=== PATIENT | male | born 1995 | race Caucasian/White ===

== ENCOUNTER 2016-11-24 01:22 | Emergency (ER) | payer OTHER ==
[2016-11-24 01:30] VITALS: RESP 16; O2SAT 97
[2016-11-24] MEDS ORDERED: SKIN ADHESIVE (DERMABOND) 1 EACH TP ONE (02:37)
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
[2016-11-24] MEDS ORDERED: HYDROCODONE/APAP 5/325 TAB PO ONE (02:51)
[2016-11-24 04:19] VITALS: BP 131/80; PULSE 87; TEMP 98.1
== END 2016-11-24 04:12 | disposition home or self-care (01) ==
PROC: 3E0X3BZ Introduction of Anesthetic Agent into Cranial Nerves, Percutaneous Approach (ICD-10-PCS; principal; 2016-11-24)
DX: S03.2XXA Dislocation of tooth, initial encounter (principal); S00.12XA Contusion of left eyelid and periocular area, initial encounter; Y04.0XXA Assault by unarmed brawl or fight, initial encounter; Y93.89 Activity, other specified